=== PATIENT | female | born 1975 | race Caucasian/White ===

== ENCOUNTER 2019-07-08 10:05 | Emergency (ER) | payer OTHER | END 2019-07-08 10:41 | disposition home or self-care (01) | LOC: BURERS 10:05 | DX: J06.9 Acute upper respiratory infection, unspecified (principal) | CPT/HCPCS: 99283 ==

== ENCOUNTER 2020-12-22 10:48 | Outpatient (CLI) | payer OTHER | END 2020-12-22 10:49 | disposition home or self-care (01) | LOC: BURRAD 10:48 | PROVIDERS: ATTEND Nurse Practitioner Family | DX: R06.00 Dyspnea, unspecified (principal); R50.9 Fever, unspecified; R43.8 Other disturbances of smell and taste; M35.81 Multisystem inflammatory syndrome | CPT/HCPCS: 71046 ==